=== PATIENT | male | born 1940 | race Caucasian/White ===

== ENCOUNTER 2017-01-31 10:34 | Day surgery (SDC) | payer MEDICARE, OTHER ==
[2017-01-31] VITALS (7 sets, daily range): BP systolic 120–139; BP diastolic 62–77; PULSE 60–64; RESP 12–17; O2SAT 99–100
[~2017-01-31] VITALS: Ht 177.8 cm; Wt 74.1 kg
[~2017-01-31 10:34] MED LIST: ASPI-973 PO; CLOT45CR7 TP; CeFAZolin Inj 2 GM in IV Premix 1 EACH IV ONE; DOCO1CAP3 PO; FERR325C PO; Lactated Ringer's 1,000 ML IV SCH; MULT-1018 PO; OMEP20CA11 PO; [UNRECOGNIZED DRUG - OTHER]; vitamin d
[2017-01-31] MEDS ORDERED: fentaNYL-PF 50 mCg/mL 2 mL Inj ONE (10:35)
[2017-01-31] MEDS ORDERED: Phenylephrine/NS 100 mCg/mL 10 mL Syringe IVPUSH ONE (10:35)
[2017-01-31] MEDS ORDERED: Ondansetron 2 mg/mL 2 mL Inj ONE (10:35)
[2017-01-31] MEDS ORDERED: CHOL400T30 PO (11:06)
[2017-01-31] MEDS ORDERED: LORA10CA PO (11:06)
--- NOTE | 2017-01-31 14:11 | PCM.HPANE ---
Patient Data Date of Service: Jan 31, 2017 Surgeon Admitting Provider: Attending Provider:Willis Alicia MD Primary Care Physician:Deshaun Cisse MD Other Provider:Jr Maria Anesthesia Reason for Visit Left Hydrocele Ht/WT & BMI Height (Feet): 5 Height (Inches): 10.00 Weight (Kilograms): 74.12 Body Mass Index 23.00 Allergies Coded Allergies: No Known Allergies (Unverified , 01/24/17) Past Anesthesia History Anesthesia History: Denies:: Abnormal Airway, Anesthesia Reactions, Difficult Intubation, Fam Anesthesia Reaction Diabetes History Hx Diabetes?: No MRSA MRSA: No Medications Blood Thinner: Aspirin Hypertension Medication: No Home Meds Incl Beta Carol: No Reported Medications Loratadine (Claritin)10 Mg Hidhdxt03 Mg PO DAILY Ref 0 01/31/17 Cholecalciferol (Vitamin D3) (Vitamin D)400 Unit [id number] Unit PO DAILY #1 BOTTLE Ref 0 01/31/17 Multivitamin (Multi Vitamin Daily)1 Each Tablet1 Each PO DAILY 30 Days Ref 0 01/24/17 Docosahexanoic Acid/Epa (Fish Oil Concentrate Softgel)1 Each Capsule1 Each PO DAILYWD 01/24/17 Omeprazole 20 Mg Capsule.dr20 Mg PO DAILY Ref 0 01/24/17 Ferrous Sulfate (Iron)325 Mg Capsule.er325 Mg PO DAILY 01/24/17 Clotrimazole 1% (Gyne-Lotrimin 7 1%)45 Gm Cream.appl Tp Bid 01/24/17 Aspirin 81 Mg Cmbsza14 Mg PO DAILY Ref 0 01/24/17 Discontinued Reported Medications [allercon] No Conflict Check1 Tab DAILY 01/25/17 [vitamin d] No Conflict CheckUnknown Dose DAILY 01/24/17 [allergy pill] No Conflict CheckUnknown Dose DAILY 01/24/17 History History of ENT Problems?: Yes HEENT History: Positive for:: Cataracts (bilateral surgery) Hearing Problem Denies:: Abnormal Airway Difficult Intubation Dysphagia Glaucoma Sinus Problem TMJ Denture Type: None Teeth Condition: Within Normal Limits Hx of Heart Problems?: Yes Cardiovascular History: Positive for:: Cardiac Surgery (pacemaker for sinus node dysfunction, DDDR, Nik Acchany, Dr. Segovia, [facility]) Irregular Heartbeat (hx of PVCs- junctional rhythm (pre pacer) LBBB) Pacemaker Denies:: Abdominal Aortic Aneurism Atrial Fibrillation Hypertension Valvular Heart Disease Hx of Respiratory Problem?: No Respiratory History: Denies:: Asthma COPD Emphysema Oxygen Administration Pneumonia Tuberculosis Use of C-PAP Machine Use of Inhalers / NEBS Hx Neurologic Problems?: No Neurological History: Denies:: CVA Headaches Multiple Sclerosis Parkinson's Disease Seizures TIA Hx of GI Problems?: Yes Hx of Problems?: No Genitourinary History: Denies:: Kidney Stones (tenderness kidney- seeing PCP ) Urinary Tract Infection Male Hx: Positive for:: Scrotal Mass (left hydrocele current admission problem ) Skin History: Denies:: History Skin Disorders? Pressure Ulcers Hx Musculoskeletal Problems?: Yes Musculoskeletal History: Positive for:: Back Injury (hx of transverse process spines fx last year) Musculoskeletal Trauma (hx rib fractures) Osteoarthritis (hand) Denies:: Fibromyalgia Joint Replacement Hx of Psycho/Social Problems?: No Psycho Social History: Denies:: Anxiety Hx Depression Hx Surgeries?: Yes (tash inguinal hernias, pacemaker) Hx Any Other Health Problems?: Yes Other History: Denies:: Cancer Thyroid Disease History Blood Transfusions: Positive for:: Accept Blood Products? Denies:: Blood Transfusions Hx Diabetes: No Hx Alcohol Use: YesAlcoholic Drinks Per Day: less than once monthlyHx Substance Use: NoHave You Smoked inLast 12 mo: No Stop/Bang Treated for Sleep Apnea?: No Do You Have a CPAP Machine?: No S-Snoring: Do You Snore Loudly: Yes T-Tired: feel tired, fatigued: No O-Obsered: Observed not breath: No P-Blood Pressure: treated: No B- Body Mass Index > 35 kg/m2: No A- Age over 50: Yes N- Neck Large Circumference: No G- Gender Male: Yes SHAREE Total Score: 3 SHAREE Risk Assessment: High Risk, =/>3 Yes SHAREE Category 2: Yes Risk Assessment Category Category 1A: Patient has history of documented sleep apnea, and HAS NOT received any narcotic, sedative or anesthesia administration during this stay. Category 1B: Patient has history of documented sleep apnea, and HAS received any narcotic , sedative or anesthesia administration during this stay Category 2: Patient has SUSPECTED Obstructive Sleep Apnea, and HAS received any narcotic , sedative or anesthesia administration during this stay. Category 3: Patient has SUSPECTED Obstructive Sleep Apnea and HAS NOT received narcotic, sedative or anesthesia administration during this stay. Category 4: Outpatient in Procedural Areas with known sleep apnea or who screen positive for High Risk via the STOP/BANG questionnaire. Exam Exam Vital Signs Vital Signs Date Time Temp Pulse Resp B/P Pulse Ox O2 Delivery O2 Flow Rate FiO2 01/31/17 11:07 35.5 60 16 139/73 99 Room Air General Appearance: Alert, Oriented X3, Cooperative, No Acute Distress HEENT/AIRWAY: MP 2 Lungs: Clear to Auscultation Heart: Regular Rate/Rhythm Plan Impression Patient chart reviewed, patient interviewed and anesthestic plan with risks, benefits, and alternatives discussed, and informed consent obtained. NPO per Anesth. Guidelines: Yes ASA Physical Status: ASA2 Mod Systemic Disease Anesthetic Plan: GA Bene/Risks/Altern/Consents: Yes HP Complete Prior to Induction: Yes Other Will have magnet in room. No indication for use, below umbilicus. Charles Dempsey DO Jan 31, 2017 14:11
[2017-01-31] MEDS ORDERED: Bupivacaine-MPF 0.5% W/EPI 30 mL Inj INFILTRATE ONE (15:32)
[2017-01-31] MEDS ORDERED: Lactated Ringer's 1,000 ML IV ONE (15:32)
[2017-01-31] MEDS ORDERED: Lactated Ringer's 1,000 ML IV SCH (16:27)
[2017-01-31] MEDS ORDERED: Lactated Ringer's 500 ML IV PRN (16:27)
[2017-01-31] MEDS ORDERED: HYDROmorphone 1 mg/mL Inj IVPUSH PRN (16:30)
[2017-01-31] MEDS ORDERED: Ondansetron 2 mg/mL 2 mL Inj IVPUSH PRN (16:30)
[2017-01-31] MEDS ORDERED: EPHEDrine Sulfate 50 mg/mL Inj IVPUSH PRN (16:30)
[2017-01-31] MEDS ORDERED: Phenylephrine 10,000 mCg/mL Inj IVPUSH PRN (16:30)
[2017-01-31] MEDS ORDERED: MetoCLOpramide 5 mg/mL 2 mL Inj IVPUSH PRN (16:30)
[2017-01-31] MEDS ORDERED: fentaNYL-PF 50 mCg/mL 2 mL Inj IVPUSH PRN (16:30)
[2017-01-31] MEDS ORDERED: Dexamethasone 4 mg/mL Inj IVPUSH PRN (16:30)
--- NOTE | 2017-01-31 17:20 | PCM.ANEP1 ---
Post Anesthesia PACU Phase 1 Assessment Date of Service: Jan 31, 2017 Vital Signs Vital Signs Date Time Temp Pulse Resp B/P Pulse Ox O2 Delivery O2 Flow Rate FiO2 01/31/17 17:15 60 17 120/71 99 Room Air 01/31/17 17:12 36.4 64 13 129/72 99 Room Air 01/31/17 11:07 35.5 60 16 139/73 99 Room Air Anesthetic Administered: GA Level of Alertness: Awake, talking Pain: No Nausea or Vomiting: No CV Function & Hydration Stable: Yes Airway Device: Oxygen Delivery: Room Air Lungs: Clear to Auscultation PACU Phase 2 Assessment Complications: No Follow up Care: N/A Patient Instructions Provided: N/A Charles Dempsey DO Jan 31, 2017 17:20
--- NOTE | 2017-01-31 17:20 | PCM.SURGPO ---
Immediate Operative Note Date of Surgery: Jan 31, 2017 Pre Operative Diagnosis L hydrocele Post Operative Diagnosis L hydrocele Procedure L hydrocelectomy Surgeon and Certified Dental Assistant Surgeon: Willis Alicia MD Assistants: None Findings Moderate-large L hydrocele was seen. L hydrocelectomy was performed. Complications There were no periprocedural complications identified. Surgical Specimen Removed: Yes Specimen sent to Pathology: Yes Surgical Specimen description: L hydrocele sac Anesthetic Administered: GA Grafts, Implants: None Output, Estimated Blood Loss: 5 Blood Admin during surgery: No Willis Alicia MD Jan 31, 2017 17:20
--- NOTE | 2017-01-31 17:25 | PCM.DISURG ---
Surgical Discharge Instruction Date of Service Jan 31, 2017 Dates of Hospitalization Date of Hospital Admission Jan 31, 2017 Providers Admitting Physician: Willis Alicia MD Primary Care Physician: Deshaun Cisse MD Attending Physician: Willis Alicia MD Discharge Diagnosis Discharge Diagnosis L hydrocele Post Operative diagnosis L hydrocele Diet Discharge Diet: No restrictions Activity Discharge Activity-General: No driving while taking narcotic, Other (No strenuous exercise/activity or moderate or heavy lifting (> 10 lbs.) for 2 weeks. Try to stay off your feet as much as possible for the next 3 days.) Dressing and Incisional Care Dressing Care: Other (Remove dressing (over wound) and scrotal fluff gauze dressing in 2 days. Continue to wear scrotal support at all times until post- op visit.) Hygiene: Other (May shower after 2 days. No bath/pool/spa for 4 weeks.) Additional Instructions Discharge Instructions No blood-thinning medications (including Aspirin, Ibuprofen, Motrin, Advil, Naproxen, Aleve, fish oil, and Vitamin E) for 7-10 days Follow Up Plan Follow-up Provider (F9): Willis Alicia MD Follow-up appointment: Weeks (2-3 weeks for post-op visit) Call your provider for: Fever, Chills, Vomiting, Wound redness, Increasing wound pain, Warmth to touch, Discharge @ incision, pus discharge, Other (Pain uncontrolled by pain medications) Willis Alicia MD Jan 31, 2017 17:25
[2017-01-31] MEDS ORDERED: HYDROcodone-APAP 5-325 mg Tablet PO PRN (17:35)
--- NOTE | 2017-02-01 19:21 | OP ---
[address] [address] OPERATIVE REPORT PATIENT: DIDIER SAAVEDRA : 1940 MR#: [id number] ADMIT: 01/31/2017 JOB ID: [id number] DATE OF SURGERY: 01/31/2017 PREOPERATIVE DIAGNOSIS(ES): Left hydrocele. POSTOPERATIVE DIAGNOSIS(ES): Left hydrocele. PROCEDURE: Left hydrocelectomy. SURGEON: Willis Alicia MD DAG COATER: None. ANESTHESIA: General. ESTIMATED BLOOD LOSS: 5 mL. SPECIMENS: Left hydrocele sac. DRAINS: None. COMPLICATIONS: None. CONDITION: Stable. FINDINGS: Moderate to large left hydrocele was seen. Left hydrocelectomy was performed. INDICATION: The patient is a 76-year-old male seen by BRIAN Freeman in the office with a left hydrocele. The patient now presents for left hydrocelectomy. PROCEDURE: The patient was brought to the operating room and placed supine on the operating room table. The patient was given Ancef IV antibiotics. Sequential compression device boots were placed. General anesthesia was administered. The patient was left in supine position. The patient was prepped and draped in standard surgical fashion. A moderate to large left hydrocele was seen and a transverse incision was made in the left hemiscrotum, through the through the skin sharply using #15 blade. This was done over the hydrocele. The incision was carried through the subcutaneous tissue and dartos fascia, down to the hydrocele sac and tunica vaginalis using Bovie electrocautery. The hydrocele sac and tunica vaginalis were dissected away from surrounding tissue using combination of blunt and sharp dissection and the hydrocele sac and tunica vaginalis were brought out of the patient's scrotum. An incision was made in the hydrocele sac and tunica vaginalis sharply using Metzenbaum scissors, well away from the testis and epididymis and scrotal structures. Hydrocele fluid was drained. The incision was extended through the hydrocele sac and tunica vaginalis using Bovie electrocautery, making sure to stay well away from the testis, epididymis, and scrotal structures. Then, the testis, epididymis, and spermatic cord were brought out of the hydrocele sac and tunic vaginalis. The left testis and epididymis were seen to be normal. An appendix testis was seen and was fulgurated and excised. The hydrocele sac was excised using Bovie electrocautery and sent to pathology for permanent specimen. The edges of the hydrocele sac were oversewn using a running 3-0 chromic suture. Excellent hemostasis was achieved using Bovie electrocautery. The testis, epididymis, scrotal structures, and the wound were irrigated copiously using sterile irrigation solution. The testis, epididymis, and spermatic cord were placed back within the patient's scrotum, making sure the keep the testis, epididymis, and spermatic cord in correct anatomic orientation and not twisted. The dartos layer was closed using a running 3-0 Vicryl suture. Local anesthesia in the form of 0.25% plain Marcaine was administered subcutaneously for local anesthesia. The skin edges were reapproximated using simple interrupted 3-0 chromic sutures. The skin was cleaned and dried and a sterile dressing, scrotal fluff gauze dressing, and scrotal support were applied. The patient was awakened from general anesthesia and transferred to the recovery room in stable condition. The patient tolerated the procedure well. The postoperative plan is for the patient to return to see me in the office in 2-3 weeks for a postoperative visit.
--- NOTE | 2017-02-04 11:46 | PATH ---
SURGICAL PATHOLOGY Attending Physician:Willis Alicia MD CASE STATUS: Signed Out PATIENT NAME: DIDIER SAAVEDRA PID: [id number] : 1940 DATE COLLECTED:01/31/2017 00:00 SPECIMEN: Hydrocele CLINICAL HISTORY: LEFT HYDROCELE 1). LEFT HYDROCELE SAC FINAL DIAGNOSIS: 1.LEFT HYDROCELE SAC: TISSUE CONSISTENT WITH HYDROCELE SAC. ICD10 N43.3 GROSS DESCRIPTION: Received in formalin, labeled with the patient's name and "left thoracic" are two fragments of girard-pruitt glistening tissue ranging from 1.5 x 0.8 x 0.8 cm to 3.5 x 1.5 x 1.0 cm. One fragment is inked blue. Carbide [employer] Maker sections are submitted in one cassette. [id number]) MICRO DESCRIPTION: See diagnosis. ICD-9 CODES: CPT CODES: 1: 85570 Electronically Signed Out Matthew Glover MD [facility] Pathology [facility] [address], [place] [address] Technical component performed at [facility], [facility] [address], [place], [address]
== END 2017-01-31 23:59 | disposition home or self-care (01) ==
LOC: SAS 10:34 → EDUNIT# 10:45 → SAS 23:59
PROVIDERS: ATTEND Urology
DX: N43.3 Hydrocele, unspecified (principal); K21.9 Gastro-esophageal reflux disease without esophagitis; Z79.82 Long term (current) use of aspirin; Z79.899 Other long term (current) drug therapy; Z95.0 Presence of cardiac pacemaker
CPT/HCPCS: 55040; 88302; J0690; J2250; J2370; J2405; J3010; J7120